=== PATIENT | male | born 1980 ===

== ENCOUNTER 2019-01-17 20:02 | Emergency (ER) | payer OTHER ==
[~2019-01-17] VITALS: Ht 172.7 cm; Wt 86.6 kg
[2019-01-17] MEDS ORDERED: IV RINGERS SOLUTION,LACTATED 1,000 ML IV SCH (20:13)
[2019-01-17] MEDS ORDERED: ONDANSETRON PF 4 MG/2 ML VIAL. IV ONE (20:15)
--- NOTE | 2019-01-17 20:24 | ED.ADGEN ---
Adult General Chief Complaint Chief Complaint ".. I ve not been feeling right.. but I vomited.. and about or did get really dizzy. .. I am better now.. I did not want to come.. but [place] said I had to go and be checked..out..." HPI HPI Patient is a 38 year old male [place] inmate who presents with above hx dizziness and vomiting. 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 sitting at the picnic table and refused transport was told he must go to the hospital be evaluated. Initial vital stable. Alert and oriented �4 per paramedics. . Patient denies any intake of bad food. Patient denies any travel, pt denies any trauma . Patient specific ill contacts. Patient denies any past medical history with exception of some elevated glucose levels. Patient denies any headache. Patient is currently assigned to [facility] until February when he is discharged from the [facility] system on his possession of weapons charge back to [place]. [place]. Review of Systems Review of Systems Constitutional: Denies fever or chills [] Eyes: Denies change in visual acuity, redness, or eye pain [] HENT: Denies nasal congestion or sore throat [] Respiratory: Denies cough or shortness of breath [] Cardiovascular: No additional information not addressed in HPI [] GI: Denies abdominal pain,, bloody stools or diarrhea []has complaints of nausea, vomiting : Denies dysuria or hematuria [] Musculoskeletal: Denies back pain or joint pain [] Integument: Denies rash or skin lesions [] Neurologic: Denies headache, focal weakness or sensory changes []dizzy prior to the nausea and vomiting Endocrine: Denies polyuria or polydipsia [] All other systems were reviewed and found to be within normal limits, except as documented in this note. Family History Family History Noncontributory Current Medications Current Medications Current Medications Medications (Trade) Dose Ordered Sig/Jesús Start Time Stop Time Status Last Admin Dose Admin Azithromycin (Zithromax) 500 mg 1X ONCE 01/17/19 23:15 01/17/19 23:16 DC 01/17/19 23:55 500 MG Lactated Ringer's 1,000 ml @ 1,000 mls/hr Q1H 01/17/19 20:13 01/17/19 21:17 DC 01/17/19 21:35 1,000 MLS/HR Magnesium Hydroxide (Milk Of Magnesia) 2,400 mg 1X ONCE 01/17/19 23:30 01/18/19 00:13 DC 01/17/19 23:55 2,400 MG Ondansetron HCl (Zofran) 8 mg 1X ONCE 01/17/19 20:15 01/17/19 21:17 DC 01/17/19 21:35 8 MG See nursing for home meds Allergies Allergies Allergies Coded Allergies Type Severity Reaction Last Updated Verified No Known Drug Allergies 01/17/19 No No known drug allergies Physical Exam Physical Exam Constitutional: Well developed, well nourished, no acute distress, non-toxic appearance. [] HENT: Normocephalic, atraumatic, bilateral external ears normal, oropharynx moist, no oral exudates, nose normal. [] Eyes: PERRLA, EOMI, conjunctiva normal, no discharge. [] Neck: Normal range of motion, no tenderness, supple, no stridor. [] Cardiovascular:Heart rate regular rhythm, no murmur [] Lungs & Thorax: Bilateral breath sounds "equal at apex with scattered wheezes on auscultation [] Abdomen: Bowel sounds normal, soft, no tenderness, no masses, no pulsatile masses. [] Skin: Warm, dry, no erythema, no rash. [] Back: No tenderness, no CVA tenderness. [] Extremities: No tenderness, no cyanosis, no clubbing, ROM intact, no edema. [] Neurologic: Alert and oriented X 3, normal motor function, normal sensory function, no focal deficits noted. []DTRs +2 patella and brachial. 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 No drift. No cording appreciated. Psychologic: Affect normal, judgement normal, mood normal. [] Current Patient Data Vital Signs Vital Signs Date Time Temp Pulse Resp B/P (MAP) Pulse Ox O2 Delivery O2 Flow Rate FiO2 01/17/19 21:36 62 16 138/85 (102) 96 Room Air 01/17/19 20:05 98.3 Lab Results Laboratory Tests Test 01/17/19 20:09 01/17/19 20:45 01/17/19 23:10 White Blood Count 6.5 x10^3/uL (4.0-11.0) Red Blood Count 4.03 x10^6/uL (4.30-5.70) L Hemoglobin 13.1 g/dL (13.0-17.5) Hematocrit 39.0 % (39.0-53.0) Mean Corpuscular Volume 97 fL (79-100) Mean Corpuscular Hemoglobin 33 pg (25-35) Mean Corpuscular Hemoglobin Concent 34 g/dL (31-37) Red Cell Distribution Width 12.3 % (11.5-14.5) Platelet Count 226 x10^3/uL (140-400) Neutrophils (%) (Auto) 39 % (31-73) Lymphocytes (%) (Auto) 47 % (24-48) Monocytes (%) (Auto) 10 % (0-9) H Eosinophils (%) (Auto) 4 % (0-3) H Basophils (%) (Auto) 0 % (0-3) Neutrophils # (Auto) 2.5 x10^3uL (1.8-7.7) Lymphocytes # (Auto) 3.1 x10^3/uL (1.0-4.8) Monocytes # (Auto) 0.7 x10^3/uL (0.0-1.1) Eosinophils # (Auto) 0.3 x10^3/uL (0.0-0.7) Basophils # (Auto) 0.0 x10^3/uL (0.0-0.2) Prothrombin Time 10.3 SEC (9.4-11.4) Prothrombin Time INR 1.0 (0.9-1.1) Activated Partial Thromboplast Time 24 SEC (23-33) D-Dimer (Andreina) 0.35 mg/L (0.00-0.50) Sodium Level 140 mmol/L (136-145) Potassium Level 3.8 mmol/L (3.5-5.1) Chloride Level 104 mmol/L (98-107) Carbon Dioxide Level 31 mmol/L (21-32) Anion Gap 5 (6-14) L Blood Urea Nitrogen 18 mg/dL (8-26) Creatinine 1.3 mg/dL (0.7-1.3) Estimated GFR (Cockcroft-Gault) 62.1 Glucose Level 112 mg/dL (70-99) H Calcium Level 8.8 mg/dL (8.5-10.1) Magnesium Level 2.0 mg/dL (1.8-2.4) Total Bilirubin 0.2 mg/dL (0.2-1.0) Direct Bilirubin 0.1 mg/dL (0.0-0.2) Aspartate Amino Transferase (AST) 18 U/L (15-37) Alanine Aminotransferase (ALT) 24 U/L (16-63) Alkaline Phosphatase 73 U/L (46-116) Creatine Kinase 149 U/L (39-308) Troponin I Quantitative < 0.017 ng/mL (0-0.055) < 0.017 ng/mL (0-0.055) DR-Dxr-F-Type Natriuretic Peptide 61 pg/mL (0-124) Total Protein 6.6 g/dL (6.4-8.2) Albumin 3.6 g/dL (3.4-5.0) Lipase 61 U/L (73-393) L Urine Collection Type Unknown Urine Color Yellow Urine Clarity Hazy Urine pH 6.0 Urine Specific Distant 1.025 Urine Protein 30 mg/dl (NEG-TRACE) Urine Glucose (UA) Neg mg/dL (NEG) Urine Ketones (Stick) Trace mg/dL (NEG) Urine Blood Neg (NEG) Urine Nitrite Neg (NEG) Urine Bilirubin Neg (NEG) Urine Urobilinogen Dipstick 0.2 mg/dL (0.2 mg/dL) Urine Leukocyte Esterase Neg (NEG) Urine RBC 0 /HPF (0-2) Urine WBC 1-4 /HPF (0-4) Urine Squamous Epithelial Cells Occ /LPF Urine Bacteria 0 /HPF (0-FEW) Urine Hyaline Casts Occ /HPF Urine Mucus Mod /LPF Urine Opiates Screen Neg (NEG) Urine Methadone Screen Neg (NEG) Urine Barbiturates Neg (NEG) Urine Phencyclidine Screen Neg (NEG) Urine Amphetamine/Methamphetamine Neg (NEG) Urine Benzodiazepines Screen Neg (NEG) Urine Cocaine Screen Neg (NEG) Urine Cannabinoids Screen Neg (NEG) Urine Ethyl Alcohol Neg (NEG) EKG EKG My interpretation EKG shows a sinus rhythm at 65 bpm. There is nonspecific contour changes anterior lateral leads. But no findings acute STEMI with contral ateral changes[]23:06 I interpretation second EKG at 2306 hrs. shows a bradycardia at 59 bpm no acute allergies. There has been some interval change because of his placement of leads. But no findings acute STEMI Radiology/Procedures Radiology/Procedures Interpretation chest x-ray shows no acute cardiac findings. Possible Rt. lower atelectasis v s infiltrate. Has findings consistent with constipation.. Course & Med Decision Making Course & Med Decision Making Pertinent Labs and Imaging studies reviewed. (See chart for details) Pt. demanding discharge. 2330. Agrees to to stay for repeat EKG and Trop. Patient discharged on Zithromax 250 mg a day. Patient follow-up primary care. Patient take Tylenol ibuprofen for discomfort. Patient take Zofran for nausea and vomiting. Suspect this is a viral presentation however it does have infiltrate and bronchial cuffing on Rt. low lung field. Will cover for pneumonia with Zithromax. ] Final Impression Final Impression 1. Nausea vomiting 2. Near-syncope[] 3. Viral syndrome 4. Constipation 5. Possible right lower infiltrate versus atelectasis Dragon Disclaimer Dragon Disclaimer This electronic medical record was generated, in whole or in part, using a voice recognition dictation system. Dragon Disclaimer This chart was dictated in whole or in part using Voice Recognition software in a busy, high-work load, and often noisy Emergency Department environment. It may contain unintended and wholly unrecognized errors or omissions. ANITA SUE MD Jan 17, 2019 20:24
[2019-01-17 20:51] LABS: BASO % 0 % (0-3); EOS # 0.3 x10^3/uL (0.0-0.7); EOS % 4 % (0-3); HEMOGLOBIN 13.1 g/dL (13.0-17.5); LYMPH # 3.1 x10^3/uL (1.0-4.8); LYMPH % 47 % (24-48); MEAN CORPUSCULAR HEMOGLOBIN 33 pg (25-35); MEAN CORPUSCULAR HGB CONC 34 g/dL (31-37); MEAN CORPUSCULAR VOLUME 97 fL (79-100); MONO # 0.7 x10^3/uL (0.0-1.1); MONO % 10 % (0-9); NEUT # 2.5 x10^3uL (1.8-7.7); NEUT % 39 % (31-73); PLATELET COUNT 226 x10^3/uL (140-400); RED BLOOD COUNT 4.03 x10^6/uL (4.30-5.70); RED CELL DISTRIBUTION WIDTH 12.3 % (11.5-14.5); WHITE BLOOD COUNT 6.5 x10^3/uL (4.0-11.0)
[2019-01-17 21:03] LABS: ALBUMIN 3.6 g/dL (3.4-5.0); CALCIUM 8.8 mg/dL (8.5-10.1); CREATININE 1.3 mg/dL (0.7-1.3); DIRECT BILIRUBIN 0.1 mg/dL (0.0-0.2); GFR 62.1; POTASSIUM 3.8 mmol/L (3.5-5.1); TOTAL BILIRUBIN 0.2 mg/dL (0.2-1.0); TOTAL PROTEIN 6.6 g/dL (6.4-8.2)
[2019-01-17 21:06] LABS: BARBITURATES NEG (NEG); BENZODIAZEPINES NEG (NEG); CANNABINOIDS NEG (NEG); COCAINE NEG (NEG); METHADONE NEG (NEG); OPIATES NEG (NEG); PHENCYCLIDINE NEG (NEG)
[2019-01-17 21:30] LABS: AMPHETAMINE/METHAMPHETAMINE NEG (NEG)
[2019-01-17 21:59] LABS: BILIRUBIN,URINE NEG (NEG); CLARITY,URINE HAZY; COLOR,URINE YELLOW; GLUCOSE,URINE NEG (NEG); NITRITE,URINE NEG (NEG); UROBILINOGEN,URINE 0.2 mg/dL (0.2 mg/dL)
[2019-01-17 22:00] LABS: BACTERIA,URINE 0 /HPF (0-FEW); HYALINE CASTS, URINE OCC /HPF; RBC,URINE 0 /HPF (0-2); SQUAMOUS EPITHELIAL CELL,UR OCC /LPF
[2019-01-17] MEDS ORDERED: ONDA8TAB9 PO (22:43)
--- NOTE | 2019-01-17 22:53 | RAD ---
EXAM: Two view abdomen with one view chest HISTORY: Nausea/vomiting. COMPARISON: None. FINDINGS: A frontal view of the chest and supine/upright views of the abdomen are obtained. A mild infiltrate is suspected in the right base. There is no pneumothorax or pleural effusion. The heart is not enlarged. There is no pneumoperitoneum. There are no distended small bowel loops or significant air-fluid levels. There is gas distally. Stool throughout the right colon suggests constipation. There are changes of internal fixation of a left proximal femoral fracture. IMPRESSION: 1. Mild right basilar infiltrate. 2. Correlate for mild constipation. No evidence of obstruction. Electronically signed by: Eder Cano MD (01/17/2019 10:50 PM) [facility]
--- NOTE | 2019-01-17 23:10 | EKG ---
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
[2019-01-17] MEDS ORDERED: AZIT250T PO (23:14)
[2019-01-17] MEDS ORDERED: AZITHROMYCIN 250 MG TABLET. PO ONE (23:15)
[2019-01-17] MEDS ORDERED: MAGNESIUM HYDROXIDE 2,400 MG/30 ML ORAL.SUSP. PO ONE (23:30)
[2019-01-18 00:45] VITALS: BP 134/64
[2019-01-18 12:08] LABS: THYROID STIM HORMONE (TSH) 5.259 uIU/mL (0.358-3.740)
[2019-01-18 23:07] LABS: HEMOGLOBIN A1C 5.7 % (4.8-5.6)
--- NOTE | 2019-01-19 01:52 | EKG ---
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
== END 2019-01-18 00:54 | disposition home or self-care (01) ==
LOC: ER 20:02
DX: R55 Syncope and collapse (principal); R11.2 Nausea with vomiting, unspecified; B34.9 Viral infection, unspecified; K59.00 Constipation, unspecified
CPT/HCPCS: 36415; 74022; 80048; 80061; 80076; 80307; 81001; 82550; 83036; 83690; 83735; 83880; 84443; 84484; 85025; 85379; 85610; 85730; 86705; 86709; 86803; 87340; 93005; 96361; 96374; 99285; J0456; J2405; J7120